=== PATIENT | male | born 1955 | race Caucasian/White ===

== ENCOUNTER 2021-09-27 02:58 | Inpatient (IN) ==
[2021-09-27] MEDS ORDERED: Heparin - STEMI 5,000 UNITS/ML 1 ml VIAL IV ONE (03:09)
[2021-09-27 03:40] LABS: ABS Basophils 0.1 10^3/ul (0-0.2); ABS Lymphocytes 0.7 10^3/ul (1.0-4.8); ABS Monocytes 0.6 10^3/ul (0-0.8); ABS Neutrophils 17.3 10^3/ul (1.5-7.7); Hematocrit 50 % (42-52); Hemoglobin 17.7 g/dL (14.0-18.0); Mean Corpuscular HGB Conc 35 g/dL (31-36); Mean Corpuscular Hemoglobin 31 pg (27-31); Mean Corpuscular Volume 88 fL (80-94); Mean Platelet Volume 8.1 fL (7.4-10.4); Platelet Count 355 10^3/uL (150-450); Red Blood Count 5.68 10^6 /uL (4.18-5.48); Red Cell Distribution Width 14 % (10-15); White Blood Count 18.6 10^3/uL (3.5-10.8)
[2021-09-27] MEDS ORDERED: Heparin 1,000 UNIT/ML 10 ml (10,000 UNITS) CATHLAB/DIALYSIS ONE ×3 (03:44→12:37)
[2021-09-27] MEDS ORDERED: VERAPAMIL 2.5 MG/ML 2 ML VIAL ** 5 mg/2 ml ONE (03:44)
[2021-09-27] MEDS ORDERED: nitroGLYCERIN DRIP 25,000 MCG/250 ML BTL ONE (03:44)
[2021-09-27] MEDS ORDERED: Lidocaine 1% VIAL 10 MG/ML VIAL ONE ×2 (03:44→12:38)
[2021-09-27] MEDS ORDERED: Heparin 2 UNITS/ML 1000 mls 2,000 ML IV ONE ×2 (03:44→12:38)
[2021-09-27] MEDS ORDERED: Iohexol 350 (CONTRAST) 200 ML MDV IV ONE ×3 (03:45→12:38)
[2021-09-27 04:05] LABS: Albumin 4.2 g/dL (3.2-5.2); Anion Gap 12 mmol/L (2-11); CO2 Carbon Dioxide 26 mmol/L (22-32); Calcium 9.4 mg/dL (8.6-10.3); Chloride 100 mmol/L (101-111); Magnesium 1.9 mg/dL (1.9-2.7); Potassium 3.9 mmol/L (3.5-5.0); Sodium 138 mmol/L (135-145)
[2021-09-27 04:11] LABS: ALT 30 U/L (7-52); AST 136 U/L (13-39); Albumin/Globulin Ratio 1.3 (1-3); Alkaline Phosphatase 83 U/L (35-149); Blood Urea Nitrogen 18 mg/dL (6-24); Globulin 3.2 g/dL (2-4); Glucose 184 mg/dL (70-100); LDL Cholesterol Direct 213 mg/dL; Total Protein 7.4 g/dL (6.4-8.9); eGFR CKD-EPI 76.2 (>60)
[2021-09-27] MEDS ORDERED: Midazolam 5 mg/5 ml VIAL 1 mg/ml 5 ml VIAL (5 mg) ONE ×2 (04:11→12:37)
[2021-09-27] MEDS ORDERED: fentaNYL 100 mcg/2 ml 50 MCG/ML VIAL ONE ×2 (04:11→12:37)
[2021-09-27] MEDS ORDERED: Bivalirudin 250 MG VIAL ONE (04:14)
[2021-09-27 04:16] LABS: INR 1.12 (0.86-1.15)
[2021-09-27 04:18] LABS: Troponin I 17.15 ng/mL (<0.03)
[2021-09-27 04:19] LABS: Activated Partial Thrombo Time >240.0 seconds (26.0-38.0)
[2021-09-27] MEDS ORDERED: Heparin 2 UNITS/ML 1000 mls 1,000 ML IV ONE ×3 (04:50→13:36)
[2021-09-27] MEDS ORDERED: Eptifibatide IV (Load dose) 2 MG/ML 10 ml VIAL ONE (05:03)
[2021-09-27] MEDS ORDERED: Heparin DRIP 25,000 UNITS BAG 25,000 UNITS/500 ML BAG IV SCH (05:45)
[2021-09-27] MEDS ORDERED: NS 0.9% 1000 ml BAG 1,000 ML IV SCH (05:45)
[2021-09-27] MEDS ORDERED: Heparin 5000 UNITS/ML 1 mL VIAL IV SCH (06:00)
[2021-09-27] MEDS ORDERED: Potassium Chlor 20 meq TAB.ER PO ONE (06:03)
[2021-09-27] MEDS ORDERED: Magnesium Sulfate IV 1GM/100ML 1 GM/100 ML BAG IV ONE (06:03)
[2021-09-27 06:08] LABS: ABS Lymphocytes 0.7 10^3/ul (1.0-4.8); ABS Monocytes 0.8 10^3/ul (0-0.8); ABS Neutrophils 19.9 10^3/ul (1.5-7.7); Hematocrit 50 % (42-52); Hemoglobin 17.1 g/dL (14.0-18.0); Lymphocyte % 3.4 %; Mean Corpuscular HGB Conc 34 g/dL (31-36); Mean Corpuscular Hemoglobin 31 pg (27-31); Mean Corpuscular Volume 91 fL (80-94); Mean Platelet Volume 7.9 fL (7.4-10.4); Nucleated Red Blood Cells % 0.1; Platelet Count 315 10^3/uL (150-450); Red Blood Count 5.49 10^6 /uL (4.18-5.48); Red Cell Distribution Width 13 % (10-15); White Blood Count 21.4 10^3/uL (3.5-10.8)
[2021-09-27] MEDS ORDERED: Furosemide 20 mg/2 ml IV VIAL IV ONE ×3 (06:50→10:01)
[2021-09-27] MEDS ORDERED: Piperacillin/Tazobac ADVAN 3.375 GM in NS 0.9% 100 ml BAG 100 ML IV ONE (06:50)
[2021-09-27] MEDS ORDERED: Albuterol 2.5mg/3 ml (0.083%) NEB.SOLN INH ONE (06:50)
[2021-09-27 06:53] LABS: Troponin I > 80.00 ng/mL (<0.03)
[2021-09-27] MEDS ORDERED: Zosyn per Pharmacy NOTE FOLLOW UP SCH (07:00)
[2021-09-27] MEDS ORDERED: Azithromycin 500 mg/250 ml NS 500 MG/250 ML BAG IVPB SCH (07:00)
[2021-09-27] MEDS ORDERED: nitroGLYCERIN DRIP 25,000 MCG/250 ML BTL IV SCH (09:00)
[2021-09-27] MEDS ORDERED: Perflutren Lipid Microsphere 3 ML VIAL ONE (10:49)
[2021-09-27 12:00] LABS: Troponin I > 80.00 ng/mL (<0.03)
[2021-09-27] MEDS ORDERED: ZOSYN 3.375 GM Q8H per EXTENDED INFUSION IV SCH (12:00)
[2021-09-27 12:51] LABS: Rapid COVID-19 Molecular Undetected (Undetected)
[2021-09-27 13:02] VITALS: BP 100/79
[2021-09-27 13:25] LABS: Blood Urea Nitrogen 19 mg/dL (6-24); CO2 Carbon Dioxide 22 mmol/L (22-32); Calcium 9.4 mg/dL (8.6-10.3); Chloride 102 mmol/L (101-111); Glucose 184 mg/dL (70-100); Magnesium 2.1 mg/dL (1.9-2.7); Sodium 137 mmol/L (135-145); eGFR CKD-EPI 75.3 (>60)
[2021-09-27 14:42] LABS: Anion Gap 13 mmol/L (2-11)
[2021-09-27] MEDS ORDERED: Furosemide 40 mg/4 ml IV VIAL IV SLOW PU SCH (21:00)
[2021-09-28 14:37] LABS: POC SO2 89 %
[2021-09-28 14:37] LABS: POC SO2 46 %
== END 2021-09-27 15:00 | disposition short-term general hospital (02) | DRG 270 ==
LOC: ED 02:58 → SDS 04:01 → ICU 05:45